=== PATIENT | male | born 1950 | race African-American/Black ===

== ENCOUNTER → 2018-04-10 | Outpatient (CLI) | payer OTHER, MEDICARE ==
[2017-05-20 09:00] VITALS: BP 151/87
[~2018-04-10] MED LIST: AMLO2.5T3 PO; AMLO5TAB7 PO; ASPI81TA50 PO; BYSTOLIC5 MG PO; GLIM2TAB2 PO; LINA5TAB4 PO; LOSA1TAB25 PO; METO25TA4 PO; SIMV20TA3 PO; SITA25TA PO
--- NOTE | 2018-04-10 08:19 | RAD ---
Examination: Ultrasound abdominal aorta HISTORY: History of abdominal aortic aneurysm screening COMPARISON: 04/01/2017. FINDINGS: The proximal aorta measures 2.3 x 2.5 cm with a velocity of 105 cm/s. The mid abdominal aorta measures 2.4 x 2.7 cm. The distal abdominal aorta measures 3.1 x 3.2 cm with velocity of 72 cm cm/s. IMPRESSION: Mild distal abdominal aortic aneurysm measuring 3.2 cm. Electronically signed by: Jose Alberto Pretty MD (04/10/2018 8:15 AM) [place] [id number]
--- NOTE | 2018-04-10 08:19 | RAD ---
Three-view lumbar spine radiographs 04/10/2018 CLINICAL HISTORY: Chronic low back pain. AP and 2 lateral digital radiographs of lumbar spine were obtained. The alignment of the lumbar vertebrae is within normal limits. No fracture or subluxation is seen. Degenerative changes are seen involving the lumbar disc spaces consisting of vertebral endplate sclerosis and minimal anterior and posterior vertebral body osteophyte formation. Degenerative changes are seen involving the facet joints of the lower lumbar spine. Atherosclerotic calcification of the abdominal aorta and its branches is noted. IMPRESSION: Degenerative changes are seen along the lumbar spine as outlined above. No acute osseous abnormality is seen. Electronically signed by: Elliott Siu MD (04/10/2018 8:15 AM) [id number]
--- NOTE | 2018-04-10 08:32 | RAD ---
CT chest without contrast, low-dose lung screening protocol 04/10/2018 Clinical indication: 50 pack year history of tobacco use. COMPARISON: CT chest 04/01/2017 TECHNIQUE: Multiple CT images of the chest were obtained without contrast. *One or more of the following individualized dose reduction techniques were utilized for this examination: 1. Automated exposure control. 2. Adjustment of the mA and/or kV according to patient size. 3. Use of iterative reconstruction technique. FINDINGS: Heart size is normal without significant pericardial effusion. Coronary artery calcifications are noted. The thoracic aorta is normal in caliber with trace calcified atheromatous disease. Stable mildly prominent and partially calcified mediastinal and hilar lymph nodes. There is mild paraseptal emphysema. Minimal patchy groundglass opacities in the lung bases, likely atelectasis or scarring. There is a stable nodule with eccentric punctate calcification which is either in the medial right lower lobe or a right paratracheal lymph node measuring 1.5 cm series 2/image 105. No new or enlarging noncalcified pulmonary nodule. No pleural effusion or pneumothorax. There are no destructive osseous lesions. Limited images of the upper abdomen: Grossly unremarkable. IMPRESSION: 1. Stable medial right upper lobe/paratracheal nodule with eccentric punctate calcification measuring 1.5 cm since most remote examination available 04/01/2017. Due to the equivocal location of this nodule, follow-up CT chest in 6 months is recommended to assess for stability. Lung RADS category 4A 2. No new or enlarging pulmonary nodules. 3. Coronary artery calcifications. Electronically signed by: Huey Zamorano MD (04/10/2018 8:28 AM) [id number]
== END | disposition home or self-care (01) ==
LOC: US 06:33
PROVIDERS: ATTEND Family Medicine
DX: I71.4 Abdominal aortic aneurysm, without rupture (principal); J43.8 Other emphysema; I25.10 Atherosclerotic heart disease of native coronary artery without angina pectoris; R91.8 Other nonspecific abnormal finding of lung field; I70.8 Atherosclerosis of other arteries; M47.896 Other spondylosis, lumbar region; Z77.22 Contact with and (suspected) exposure to environmental tobacco smoke (acute) (chronic); Z87.891 Personal history of nicotine dependence
CPT/HCPCS: 72100; 76770; G0297

== ENCOUNTER → 2018-11-02 | Outpatient (CLI) | payer BC, OTHER ==
[2017-05-20 09:00] VITALS: BP 151/87
[~2018-11-02] MED LIST changes: -AMLO2.5T3 PO; +AMLO2.5T5 PO; +AMLO5TAB10 PO; -AMLO5TAB7 PO; +LINA5TAB PO; -LINA5TAB4 PO
--- NOTE | 2018-11-02 16:18 | RAD ---
Noncontrast CT scan of the chest compared to similar study dated 04/10/2018 and 04/01/2017 for lung nodule follow-up. TECHNIQUE: Contiguous helical 5 mm axial images are obtained from the thoracic inlet to the base of the diaphragm. Sagittal and coronal reformations are evaluated. No IV contrast was administered. FINDINGS: There is redemonstration of a small soft tissue nodule measuring 1.3 x 1.1 cm, with an eccentric calcification. This nodule is located in the right upper lobe in the paratracheal space, seen to best advantage on image #24 of series 2. There has been no interval change from the prior study, nor from the study of March 2017. No new lung nodules or masses are identified. No suspicious adenopathy is seen. Visualized upper abdominal organs are grossly unremarkable. No suspicious osseous abnormalities. Mild atherosclerosis. IMPRESSION: 1. Stable appearing right paratracheal lung nodule with eccentric calcification. Given its stability over greater than 18 months, benignity is highly favored. For screening purposes, this lesion is downgraded to lung RADS category 2 based on lack of growth. PQRS Compliance Statement: One or more of the following individualized dose reduction techniques were utilized for this examination: 1. Automated exposure control 2. Adjustment of the mA and/or kV according to patient size 3. Use of iterative reconstruction technique Electronically signed by: Didier Contreras MD (11/02/2018 4:15 PM) [id number]
== END | disposition home or self-care (01) ==
LOC: CT 11:36
PROVIDERS: ATTEND Internal Medicine Pulmonary Disease
DX: J98.4 Other disorders of lung (principal); R91.1 Solitary pulmonary nodule
CPT/HCPCS: 71250

== ENCOUNTER → 2020-02-25 | Outpatient (CLI) | payer BC, MEDICARE ==
[2017-05-20 09:00] VITALS: BP 151/87
[~2020-02-25] MED LIST changes: -GLIM2TAB2 PO; +GLIM2TAB7 PO; +SIMV20TA18 PO; -SIMV20TA3 PO
--- NOTE | 2020-02-25 11:06 | RAD ---
Noncontrast CT scan of the chest compared to similar exam dated November 02, 2018 for lung nodule follow-up. TECHNIQUE: Contiguous axial images are obtained through the lungs. Sagittal and coronal reformations are evaluated. No IV contrast was administered. FINDINGS: Previously seen right paratracheal lung nodule with eccentric calcification is stable in appearance, with no interval growth or change in morphology. There is calcified adenopathy in the right hilum as well. Findings likely reflect antecedent granulomatous disease. No new lung nodules or masses are identified. In the right lung base, there is redemonstration of faint ill-defined groundglass opacity with a conspicuous 1.2 similar nodular ground glass component seen best on series 2 image 44. This is stable and unchanged from prior examination suggesting a chronic airspace process. Bronchoalveolar carcinoma is unlikely, but continued surveillance of this abnormality every other year interval stability is established for a minimal 5 years is encouraged. There are coronary artery calcification in multiple distributions. Evaluation of the upper abdominal organs is limited by lack of IV contrast, however no gross morphologic abnormalities of the visualized organs are identified. Severe degenerative changes of the right shoulder. IMPRESSION: 1. Stable calcified right paratracheal nodule over many years, associated with calcified right hilar adenopathy, all consistent with benign granulomatous disease. 2. Persisting subtle ground glass infiltrate in the right posterior lung base which has been present since April [id number]. There is 1.2 cm nodular groundglass component which is also stable. Given stability, bronchoalveolar carcinoma is unlikely, nevertheless given the chronicity of this airspace process, continued surveillance of this abnormality every other year until stability is demonstrated for a minimum of 5 years is encouraged. Para Fleischner Society recommendations (Radiology 2017): SOLID NODULES Solitary solid nodule <6 mm - low-risk patient: no routine follow-up required - high-risk patient: optional CT at 12 months (particularly with suspicious nodule morphology and/or upper lobe location) Solitary solid nodule 6-8 mm - low-risk patient: CT at 6-12 months, then consider CT at 18-24 months - high risk patient: CT at 6-12 months, then if persistent CT at 18-24 months Solitary solid nodule >8 mm - consider CT at 3 months, PET/CT, or tissue sampling Multiple solid nodules <6 mm - low-risk patient: no routine follow-up required - high-risk patient: optional CT at 12 months Multiple solid nodules > or = 6 mm - low-risk patient: CT at 3-6 months, then consider CT at 18-24 months - high risk patient: CT at 3-6 months, then if persistent CT at 18-24 months SUBSOLID NODULES Solitary ground glass nodule <6 mm - no routine follow-up required Solitary ground glass nodule > or = 6 mm - CT at 6-12 months, then if persistent CT every 2 years until 5 years Solitary part solid nodule > or = 6mm - CT at 3-4 months, the if persistent and solid component remains <6 mm, annual CT until 5 years Multiple subsolid nodules <6 mm - CT at 3-6 months, then if stable consider CT at 2 and 4 years in high risk patients Multiple subsolid nodules > or = 6 mm - CT at 3-6 months, then subsequent management based on the most suspicious nodule(s) PQRS Compliance Statement: One or more of the following individualized dose reduction techniques were utilized for this examination: 1. Automated exposure control 2. Adjustment of the mA and/or kV according to patient size 3. Use of iterative reconstruction technique Electronically signed by: Didier Contreras MD (02/25/2020 11:03 AM) [id number]
== END | disposition home or self-care (01) ==
LOC: CT 07:39
PROVIDERS: ATTEND Internal Medicine Pulmonary Disease
DX: R91.1 Solitary pulmonary nodule (principal); I25.10 Atherosclerotic heart disease of native coronary artery without angina pectoris
CPT/HCPCS: 71250